=== PATIENT | male | born 1950 | race Caucasian/White ===

== ENCOUNTER → 2019-02-28 10:33 | Outpatient (CLI) | payer MEDICARE, OTHER, SELFPAY ==
--- NOTE | 2019-02-28 | DI.MRI.S_ITS ---
PROCEDURE: MR CERVICAL SPINE WO CON INDICATIONS: Paresthesias TECHNIQUE: Noncontrast sagittal T1 spin echo and T2 fast spin echo, sagittal STIR, foraminal oblique sagittal T2 fast spin echo, and axial gradient echo or T2 fast spin echo through the cervical spine. COMPARISON: [facility], MR, MR HEAD/BRAIN WO CON, 02/28/2019, 10:50. FINDINGS: Image quality: Excellent. Alignment and Curvature: There is grade 1 retrolisthesis of C4 on C5. Bone Marrow: Marrow demonstrates normal overall signal. Spinal Cord: Visualized spinal cord has normal size and signal. No cerebellar tonsillar herniation. Paraspinous Soft Tissues: No paravertebral masses. Prevertebral soft tissues are normal in thickness. C2-C3: Preserved disc height. Moderate disc desiccation. There is mild posterior disc bulge. The central canal is patent. No significant foraminal stenosis. No definitive nerve root impingement. C3-C4: Preserved disc height. Moderate disc desiccation. There is diffuse posterior disc bulge and disc osteophyte complex. The central canal is moderately narrowed. Mild bilateral foraminal stenosis. No definitive nerve root impingement. C4-C5: Mild loss of disc height. Moderate disc desiccation. There is diffuse posterior disc bulge and disc osteophyte complex. Moderate bilateral facet arthropathy. The central canal is severely narrowed. [id number] bilateral bilateral foraminal stenosis. Possible bilateral nerve root impingement. C5-C6: Preserved disc height. Moderate disc desiccation. There is diffuse posterior disc bulge and disc osteophyte complex. Moderate bilateral facet arthropathy. The central canal is moderately narrowed. Moderate bilateral bilateral foraminal stenosis. No definitive nerve root impingement. C6-C7: Moderate loss of disc height and disc desiccation. There is diffuse posterior disc bulge and disc osteophyte complex. Mild bilateral facet arthropathy. The central canal is moderately narrowed. Mild bilateral bilateral foraminal stenosis. No definitive nerve root impingement. C7-T1: Normal appearance. IMPRESSION: 1. Multilevel degenerative disc disease and facet arthropathy as described. 2. Severe central canal stenosis at C4-C5, and moderate central canal stenosis at C3-C4, C5-C6 and C6-C7. 3. Multilevel foraminal stenosis stenosis, moderate to severe at C4-C5 bilaterally, and to lesser degree at several other levels. Dictated by: Chelsea Gant M.D. on 02/28/2019 at 13:01 Approved by: Chelsea Gant M.D. on 02/28/2019 at 13:17
--- NOTE | 2019-02-28 | DI.MRI.S_ITS ---
PROCEDURE: MR HEAD/BRAIN WO CON INDICATIONS: Paresthesias TECHNIQUE: Noncontrast axial T1 spin echo, axial T2 fast spin echo, sagittal and axial FLAIR, coronal T2 fast spin echo, axial gradient echo, axial diffusion and ADC through the brain. COMPARISON: [facility], MR, MR CERVICAL SPINE WO CON, 02/28/2019, 11:13. FINDINGS: Image quality: Excellent. CSF Spaces: Basal cisterns are patent. No extra-axial fluid collections. Ventricles are normal in size and shape. Brain: No intracranial masses or hemorrhage. Calvillo/white matter interface is normal. Brainstem appears normal. Diffusion-weighted images demonstrate no acute ischemic insult. No chronic ischemic insults. Normal intravascular flow voids are present. Skull and face: Calvarium has normal marrow signal. Orbits appear normal. Sinuses: Sinuses and mastoids are clear and there is a normal anatomic variant ossification of the anterior process of the left mastoid air cell region. IMPRESSION: Excellent appearance of the brain parenchyma, no area of mass or encephalomalacia is seen. No suspicion for underlying multiple sclerosis, overall normal for age. Normal anatomic variant partial ossification of the inferior process of the left mastoid air cell region. Dictated by: Chirag Carver M.D. on 02/28/2019 at 11:42 Approved by: Chirag Carver M.D. on 02/28/2019 at 11:44
== END ==
PROVIDERS: PCP Internal Medicine; Visit Provider Psychiatry & Neurology Neurology
DX: R20.2 Paresthesia of skin (principal); M48.02 Spinal stenosis, cervical region; M48.12 Ankylosing hyperostosis [Forestier], cervical region
CPT/HCPCS: 70551; 72141

== ENCOUNTER → 2019-05-01 14:19 | Outpatient (CLI) | payer MEDICARE, OTHER, SELFPAY ==
[2019-05-01 14:49] LABS: Add Manual Diff / Slide Review NO; Basophils Absolute Auto 0 /uL (0-100); Basophils Percent Auto 0.6 % (0-2); Eosinophils Absolute Auto 200 /uL (0-450); Eosinophils Percent Auto 3.2 % (2-4); Hematocrit 46.7 % (41-53); Hemoglobin 15.5 g/dL (13.5-17.5); Lymphocytes Absolute Auto 2100 /uL (1100-4500); Lymphocytes Percent Auto 30.4 % (25-40); Mean Corpuscular HGB Conc 33.2 % (30-36); Mean Corpuscular Hemoglobin 29.7 PG (26-34); Mean Corpuscular Volume 89.5 fL (80-100); Monocytes Absolute Auto 500 /uL (0-900); Monocytes Percent Auto 7.7 % (3-14); Neutrophils Absolute Auto 4000 /uL (1500-7000); Neutrophils Percent Auto 58.1 % (50-75); Platelet Count 265 X10^3/uL (150-400); Red Blood Cell Count 5.23 X10^6/uL (4.5-5.9); Red Cell Distribution Width 13.2 % (11.6-14.8); White Blood Cell Count 6.9 X10^3/uL (4.5-11.0)
[2019-05-01 15:37] LABS: Blood Urea Nitrogen 19 mg/dL (9-20); Calcium 9.9 mg/dL (8.4-10.2); Carbon Dioxide 30 mmol/L (22-32); Chloride 99 mmol/L (98-107); Estimated Glomerular Filt Rate > 60.0 mL/min (>60); Glucose 97 mg/dL (80-110); HEMOLYSIS < 15 (0-50); Potassium 4.4 mmol/L (3.4-5.1); Sodium 141 mmol/L (137-145)
== END ==
PROVIDERS: PCP Internal Medicine; Visit Provider Orthopaedic Surgery Orthopaedic Surgery of the Spine
DX: Z01.812 Encounter for preprocedural laboratory examination (principal)
CPT/HCPCS: 36415; 80048; 85025; 93005

== ENCOUNTER 2019-05-29 08:38 | Inpatient (IN) | payer MEDICARE, OTHER, SELFPAY ==
[2019-05-23 13:47] VITALS: BMI 24.4
[2019-05-29] VITALS (20 sets, daily range): BP systolic 110–167; BP diastolic 68–104; PULSE 79–111; RESP 12–17; TEMP 36.1–37.3; O2SAT 94–100; BMI 22.9
--- NOTE | 2019-05-29 | DI.RAD.S_ITS ---
PROCEDURE: XR CERVICAL SPINE 2V OR 3V INDICATIONS: C4-5-6-7 ACDF TECHNIQUE: Fluoroscopic images were obtained during an operative procedure and submitted for interpretation following the completion of the procedure. COMPARISON: [facility], , MR CERVICAL SPINE WO CON, 02/28/2019, 11:13. FINDINGS: These fluoroscopic images were performed for intraoperative localization. On these images, anterior fixation hardware is seen the C4-C7. Disc spacers are seen at the fused region. Please correlate with intraoperative findings. IMPRESSION: Normal intraoperative examination. Dictated by: Flaquito Palmer M.D. on 05/29/2019 at 13:24 Approved by: Flaquito Palmer M.D. on 05/29/2019 at 13:25
[2019-05-29] MEDS: LACTATED RINGERS 1,000 ML 42 ML IV ×2 (10:24→12:27)
--- NOTE | 2019-05-29 10:44 | PM.PREOP ---
Pre-operative Note Interval Note History & Physical reviewed/Exam performed by Physician: Yes Changes to H&P: No
[2019-05-29] MEDS: CLINDAMYCIN 600 MG/50 ML PIGGYBACK 50 MG IV ×2 (11:20→18:30)
--- NOTE | 2019-05-29 12:08 | SUR.OPER ---
Supine on padded OR bed, head on gel donut, towel roll between shoulders, arms papoosed with gel pads, towel clips secure draw sheet, bilateral shoulders taped to foot of bed, legs uncrossed, safety belt at thigh, tape over blanket over lower legs.
--- NOTE | 2019-05-29 14:15 | PM.OP.1 ---
Operative Date/Time/Diagnoses Date of procedure: 05/29/19 Time of procedure: 12:01 Pre-op diagnosis: 1. C4-5, C5-6, C6-7 spinal stenosis 2. C4-5, C5-6, C6-7 spondylosis with radiculopathy Post-op diagnosis: same Procedure & Clinicians Procedure: 1. C4-5 C5-6 C6-7 anterior cervical diskectomy and fusion 2. C4-5 C5-6 C6-7 anterior interbody cage placement 3. C4-5 C5-6 C6-7 anterior instrumentation with plate and screw placement in C4-C5-C6 and C7 vertebrae 4. Utilization of microsurgical technique and operating microscope Same procedure as scheduled: Yes Indications: Patient has been having chronic neck pain and worsening cervical radiculopathy. Patient failed multiple conservative management with worsening pain weakness and numbness in her upper extremity. Patient has been having difficulty performing activity of daily living. After discussing risks benefits of treatment options, patient elected proceed with surgery. Surgeon: Olayinka Herndon Bundle Wrapper: Venita Somers'Brien Click Yes if Unassisted: No Anesthesia Type: General Operative Notes Closure Type: primary Specimen(s): none sent Prosthetic devices, grafts, tissues, transplants, or devices: GLobus Extend plate, PEEK cages Applied: catheter Estimated Blood Loss (mL): 20 Blood products transfused: none Procedure in detail: Patient was seen in the preoperative area. Risks and benefits of the surgery was discussed with the patient. Operative consent was obtained and placed in the chart. Patient was then taken to the operative room. Prophylactic antibiotic was given less than 0.5 hr prior to skin incision. General anesthesia was administered. Patient was placed into a supine position on her radiolucent table. Bilateral shoulders were taped down to allow proper C-arm imaging. Anterior cervical area was prepped and draped in a sterile fashion. Time-out was performed at this time. Using lateral C-arm imaging, the level between C4 and C7 was identified and marked on patient's neck. A oblique incision from midline towards medial border of sternocleidomastoid muscle was made. The platysma muscle was incised in line with skin incision. Metzenbaum scissor was used to develop the plane between the medial border of sternocleidomastoid d and the strap muscles medially. The carotid sheath and its contents were identified and protected behind the hand-held retractor during the entire case. The plane between the carotid sheath and strap muscles was developed with Metzenbaum scissors. Dissection was made down to the level of the anterior cervical fascia. Longus colli muscle was incised on the anterior aspect of vertebral bodies bilaterally from C4-C7. Spinal needle was placed into the C4-5 disc space and confirmed with lateral C-arm imaging. Using microsurgical technique and operative microscope, anterior cervical diskectomy was performed at C4-5 C5-6 and C6-7 level. This was done by removing the disc material, removing the anterior and posterior osteophytes posterior longitudinal ligaments along with performing bilateral foraminotomies at all 3 levels. Patient was found to have severe central and foraminal stenosis at all 3 levels. Patient's stenosis was fully decompressed after decompression was completed. After the diskectomy was completed, 3 anterior interbody cages were obtained. The cages were packed with globus via cell bone grafting material. One cage each along with the bone grafting material was then packed into the interbody spaces from C4-C7 with one cage into each interbody level. After the cages were placed, the anterior cervical plate was stabilized to the C4-C7 vertebrae using 2 screws at each each level. Total 8 screws were placed. After confirming placement of the hardware with AP and lateral C-arm imaging, the screws were locked into the plate using the locking mechanism and torque limiting screwdriver. After the hardware was placed and confirmed with AP and lateral C-arm imaging, the wound was irrigated with sterile normal saline. The platysma muscle and the subcutaneous tissue was closed with 2-0 Vicryl. The skin was closed with 4-0 Monocryl and Steri-Strips. Patient tolerated the procedure well. Patient was transferred recovery room in stable condition. There were no complications. Complications: none Post-operative Condition: stable Disposition: PACU Plan for aftercare: Admit to inpatient hospital
[2019-05-29] MEDS: HYDROMORPHONE 2 MG INJ IV ×8 (14:45→15:26)
--- NOTE | 2019-05-29 15:40 | SUR.PHASEI ---
Pt. not getting relief to Left upper arm after 2mg Dilaudid. Posterior neck pain has improved with IV Rx. Notifying Dr. Herndon regarding Left upper arm pain that the pt. states he did not have before todays procedure.
--- NOTE | 2019-05-29 15:51 | SUR.PHASEI ---
Anesthesia came to bedside to assess pt's left upper arm, anesthesia recommends administering more pain med IV to help with current pain. pt. states it doesn't hurt when it is still, hurts when I move it.
[2019-05-29] MEDS: HYDROMORPHONE 2 MG INJ 0.5 MG IV (16:05)
[2019-05-29] MEDS: SODIUM CHLORIDE 0.9% 1,000 ML 100 ML IV (17:54)
[2019-05-29] MEDS: GABAPENTIN 300 MG CAPSULE 900 MG PO ×2 (17:54→21:50)
[2019-05-29] MEDS: CARBIDOPA-LEVODOPA 25/100 TABLET 1 EACH PO ×2 (18:30→21:52)
[2019-05-29] MEDS: OXYCODONE IR 5 MG TABLET 10 MG PO ×2 (18:36→21:48)
--- NOTE | 2019-05-29 18:44 | PC.NURSE ---
[place] shift note: Received patient from PACU S/P ACDF scheduled by Dr. HENRY. Soft collar in placed with ice pack. 3+ strenght to BUE. Patient c/o sharp pain to left mid upper arm, no noted bruising or skin breakdown to area, no pain at rest, only with movement. Patient able to move the the LUE, CMS intact, no deformity noted. Dr. HENRY at bedside, aware of left upper arm pain. Discussed importance of log rolling and no heavy lifting. Oriented to room, environment, and plan of care. Call light within reach.
[2019-05-29] MEDS: TRIMETH/SULFA 160/800 (DS) TABLET 1 TAB PO (21:52)
[2019-05-29] MEDS: HYDROMORPHONE 1 MG INJ 0.2 MG IV (23:48)
[2019-05-29] MEDS: ACETAMINOPHEN 325 MG TABLET 650 MG PO (23:49)
[2019-05-30] MEDS: OXYCODONE IR 5 MG TABLET 10 MG PO ×6 (01:21→21:33)
[2019-05-30] MEDS: hydrOXYzine pamoate 25 MG CAPSULE PO ×2 (01:21→21:43)
[2019-05-30] MEDS: CLINDAMYCIN 600 MG/50 ML PIGGYBACK 50 MG IV (03:54)
[2019-05-30] MEDS: SODIUM CHLORIDE 0.9% 1,000 ML 100 ML IV (04:01)
[2019-05-30 05:03] VITALS: BP 117/59; PULSE 76; RESP 18; TEMP 36.8; O2SAT 98
--- NOTE | 2019-05-30 08:02 | PM.PNPO.1 ---
Subjective Subjective Date Patient Seen: 05/30/19 Time Patient Seen: 08:02 Interval history: Patient's pain is moderate to severe. No fever chills. No nausea vomiting. No difficulty swallowing. Exam Vital Signs (past 8 hours): - 05/30/19 05:03 Temperature 98.3 F Pulse Rate 76 Respiratory Rate 18 Blood Pressure 117/59 L Pulse Oximetry 98 Oxygen Delivery Method Nasal Cannula Oxygen Flow Rate 0 Narrative Exam Narrative: 68-year-old male resting comfortably in bed in no apparent distress. Anterior cervical dressing is clean, dry and intact. Good strength bilateral upper extremity. Sensation grossly intact to light touch bilateral upper extremities. Assessment & Plan Post-op Postoperative Procedures: Procedures Operation Date: 05/29/19 11:15 Actual Procedures Side Surgeon p C4-5,C5-6,C6-7 ACDF w/ anterior instrumentation Olayinka Herndon MD Postop day 1. Patient progressing as expected. Soft collar for comfort. Limit bending, twisting, lifting. Mobilize with physical therapy. Possible discharge home later today or tomorrow.
[2019-05-30 08:06] VITALS: BP 119/73; PULSE 73; RESP 16; TEMP 37.1; O2SAT 99
[2019-05-30] MEDS: TRIMETH/SULFA 160/800 (DS) TABLET 1 TAB PO ×2 (08:40→21:33)
[2019-05-30] MEDS: CARBIDOPA-LEVODOPA 25/100 TABLET 1 EACH PO ×3 (08:40→21:33)
[2019-05-30] MEDS: GABAPENTIN 300 MG CAPSULE 900 MG PO ×3 (08:40→21:32)
--- NOTE | 2019-05-30 10:04 | PC.NURSE ---
Addendum entered by Cinthia Varela R.N. 05/30/19 13:08: - after lunch, albright balloon deflated and dc'd w/o difficulty, hat in br and urinal at bedside. Original Note: AM NOTE - alert, speech is slightly slowed w/hx parkinsons, during bedside shift report had cervical collar off, telfa dsg cdi, reported post op pain l arm at shoulder/bicep insertion has improved since pain medication earlier and is able to move his l arm independently I couldn't even have the nurse touch in last night, discussed medications and after breakfast, given 10mg po oxycodone for discomfort 3 on scale 0/10 for phys therapy, will hold vistaril for now and pt will advise if needed after PT, up w/fww, his soft cervical collar in place, using fww, ambul bed to chair, per phys therapy some initial wobbliness and hand tremor, denies dizziness, seated chair and positioned comfort, no tremors observed, vs stable, william po and ivf saline locked.
--- NOTE | 2019-05-30 12:00 | CM.IDA ---
Initial DCP Assessment Note: Pt is a 68 yo resident of [place]. POD#1 from spinal/cervical surgery by Dr Herndon. PCP: Dr Resendiz Payer: Medicare/[employer] Met w/pt to introduce SW role. 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 Pt states he had been told w/in the last year that he for sure had Parkinsons, he feels he and his spouse manage well at home, adult children live out of town. Pt expects to return home w/spouse upon DC. PT has seen pt this AM, pt states he was quite wobbly w/therapy but expects he could go home, possibly tomorrow. 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 No Prior Living Arrangements House Household Members spouse Independent with ADL's Yes Is patient alert and oriented? Yes Needs Assistance With Meal Prep,Home Chores / Shopping Patient/Family Preference OP PT Therapy Barriers to Discharge No Comment Pending progress w/therapy team, spouse available to assist Discharge Plan Home Transportation Arrangement Spouse Referrals Initiated None needed Review Status In Process
[2019-05-30 12:05] VITALS: BP 108/73; PULSE 86; RESP 16; TEMP 37.1; O2SAT 97
--- NOTE | 2019-05-30 12:15 | PT.IIE ---
Current Diagnoses Spondylolisthesis, cervical region (05/29/19) Spinal stenosis, cervical region (05/29/19) Surgery Performed Operation Date: 05/29/19 11:15 Actual Procedures p C4-5,C5-6,C6-7 ACDF w/ anterior instrumentation - Olayinka Herndon MD Surgical History (Last Updated 05/23/19 @ 14:12 by Geraldine Leonardo RN) H/O vasectomy (Acute) Hx of appendectomy (Acute) Hx of cholecystectomy (Acute) Hx of hernia repair (Acute) Hx of tonsillectomy (Acute) Medical History (Last Updated 05/23/19 @ 14:12 by Geraldine Leonardo RN) Carpal tunnel syndrome of right wrist (Acute) Cervical spinal stenosis (Acute) Hair follicle infection (Acute 05/23/19) Numbness (Acute) Parkinsonism (Acute) Polyneuropathy (Acute) Unilateral congenital absence of kidney (Acute) Physical Therapy Inpatient Evaluation/Re-Eval M1 PT/OT-IP Prior Functional Status Start: 05/30/19 08:25 Freq: NEEDED Status: Active Protocol: Document 05/30/19 09:18 PAULA (Rec: 05/30/19 11:57 PAULA [email or web address]) Medical Review Prior Functional Status Medical History Reviewed Yes Diet/Fluid Consistency Regular Communication No noted cognitive deficits. Pt able to make needs known. Mobility and Gait Pt reports I with mobility and gait prior to surgery without AD. Activities of Daily Living and IADL's Pt report I with ADLs and IADLs. Prior Functional Level (Other details) Pt reports I PLOF and was able to drive prior to surgery. Pt does have hx of Parkinson's but states that he does not need to use an AD at home. Social History Household Members spouse Living Arrangements House Number of Floors (Floors) Two Floors Number of Stairs To Enter/Railing? 5 DINO (front entrance has railing on R and no landing, back entrance has railing on L and a landing after 3 steps) Home Environment Standard Height Toilet,Walk in Shower Home Equipment Hand Held Shower,Grab Bars In Shower Employment Status Retired Additional Social History Comment Pt lives in 2-story home in [place] with . Pt states that his will be able to help him at home after surgery. Pt has two entrances to basement level of home with 5 DINO either entrance. Pt notes that he could live on bottom floor for short-term but the main living area is upstairs (full flight of stairs with L railing). Pt has no ADs at home and minimal home assistive equipment. M2 PT-IP Current Condition Start: 05/30/19 08:25 Freq: NEEDED Status: Active Protocol: Document 05/30/19 09:18 JG (Rec: 05/30/19 11:57 JG [email or web address]) Physical Therapy Current Condition Current Condition Evaluation Date 05/30/19 Treatment Diagnosis ACDF C4-C7, limited activity tolerance,difficulty walking, impaired mobility Onset Date 05/29/19 Precautions Cervical Spine Precautions Soft Collar for Comfort,No Heavy Lifting,Log Roll Weight Bearing Status Weight Bearing Status Full Weight Bearing M3 PT-IP Subjective Start: 05/30/19 08:25 Freq: NEEDED Status: Active Protocol: Document 05/30/19 09:18 JG (Rec: 05/30/19 11:57 JG [email or web address]) Subjective Physical Therapy Visit Type Type Initial Evaluation Visit Start Time 09:18 Visit Stop Time 09:50 Total Visit Minutes 32 Notes Tx led by ELA Weinstein, supervised by PT Raul Number of DELICATESSEN DEPARTMENT MANAGER Visits 0 Physical Therapy Visit Comments Patient Comments I am not in too much pain. I am not sure how much I can move my neck safely. Patient Goals Return home Therapy Pain Assessment Pain When Pain Assessed At Rest Pain Present Pain Present Pain Reported Location Left Arm Intensity 3 Scale Used Numeric (1 - 10) Description Acute Pain Management Techniques Distraction,Timing of Activity with Medications M4 PT-IP Mobility and Gait Start: 05/30/19 08:25 Freq: NEEDED Status: Active Protocol: Document 05/30/19 09:18 JG (Rec: 05/30/19 11:57 JG [email or web address]) PT-Bed Mobility Assessment Rolling Type of Rolling Log Rolling,Roll to Right Level of Assist Minimal Assistance Supine to Sit Supine to Sit Minimal Assistance,Bedrails Scooting Scooting to Edge of Bed Minimal Assistance PT-Transfer Assessment Sit to and From Stand Sit to and from Stand Minimal Assistance,1 Person Assistance,Use of Upper Extremities Equipment Transfer Assistive Device Gait Belt,Front Wheeled Walker Orthotic/Prosthetic Devices or Brace: Yes Transfers Transfer Destination Chair Transfer Technique Stand Step Pivot Transfer Ability Level of Assist Minimal Assistance,1 Person Assistance,Use of Upper Extremities Comments Mobility Comments Pt in bed with HOB elevated and cervical soft collar off upon assessment. Resting vitals 123/60. Cervical collar placed and secured by PT. Pt reported feeling groggy from medications and demonstrates tremor throughout mobility likely related to PD. After education on log rolling, pt able to complete bed mobility with min A d/t tremor. Pt moved very slowly with bed mobility and used bed rail on R side for side pushup. Pt required min A for balance with sit to stand. Vitals stable with BP 131/74. Pt ambulated to hallway and back to mirror for cervical collar training with CGA for balance. Pt able to remove collar I but requires assistance to fasten collar securely. Pt then ambulated to the chair and required min A to control descent with stand to sit. Pt reported feeling slightly dizzy at end of ambulation but demonstrated stable vitals with BP 132/79. Pt reported relief of dizziness after resting. Pt left in chair with call light and needs within reach. Gait Assessment Gait Gait Assistance Required: Minimum Assistance,1 Person Assist Distance (Feet) 30 Able to Maintain Weight Bearing Status Yes During Gait Assistive Devices Assistive Device Gait Belt,Front Wheeled Walker Orthotic/Prosthetic Devices or Brace: Yes Gait Deviations General Gait Pattern Decreased Stride Length, Decreased Feet Clearance, Flexed Trunk,Lateral Trunk Lean,Step-to Gait Factors Limiting Gait Function Factors Limiting Gait Function Decreased Activity Tolerance, Decreased Strength,Limited Range of Motion,Pain,Poor Balance,Poor Safety Awareness Comments Gait Comments Pt ambulated ~40 ft to hallway and back to chair with FWW and min A. Pt had difficulty initiating movement and moved slowly initially. Pt also required cues and guidance for walker management, especially when turning. Pt demonstrated shuffling gait pattern with limited feet clearance and small steps likely related to PD. Pt also demonstrates excessive L trunk lean, which pt noticed and said does not typically happen. Pt was fatigued at end of ambulation with report of mild dizziness but stable vitals. Stair Climbing Assessment Comments Stair Climbing Comments not assessed PT-Balance Assessment Sitting Balance and Reactions Static Sitting Balance Ability Good Dynamic Sitting Balance Ability Fair Standing Balance and Reactions Static Standing Balance Ability Good Dynamic Standing Balance Ability Fair Device Used FWW M5 PT-IP Objective Assessments Start: 05/30/19 08:25 Freq: NEEDED Status: Active Protocol: Document 05/30/19 09:18 JG (Rec: 05/30/19 11:57 JG [email or web address]) Orientation Orientation/Cognition Level of Alertness Alert Orientation Name,Age,Birthday,Month,Date, Year,Day of Week,Place, Situation Language Function Ability No Deficits Noted Safety Awareness Understands Safety Issues Memory Description No Deficits Noted Comments No noted cognitive or communication deficits. Pt does report feeling groggy from medications. Gross Range of Motion Upper Extremity ROM Assessment Within Functional Limits Lower Extremity ROM Assessment Within Functional Limits Strength Upper Extremity Strength Assessment Bilaterally Impaired Shoulder 4/5 Elbow 4/5 Wrist 4/5 Hand 5/5 Lower Extremity Strength Assessment Within Functional Limits Coordination Assessment Gross Coordination Gross Coordination Impaired Assessment Finger to Nose Test Minimal Impairment Pronation/Supination Test Minimal Impairment Foot Tapping Test Normal Performance Sensation Assessment Sensation Gross Sensation WNL Muscle Tone Muscle Tone WNL Yes M6 PT-IP Treatment Start: 05/30/19 08:25 Freq: NEEDED Status: Active Protocol: Document 05/30/19 09:18 J (Rec: 05/30/19 11:57 [email or web address]) Physical Therapy Treatment Education Education Provided Precautions,Post-Op Packet, Safety Brace Education Donning,Rudd,Patient Other Treatments Other Treatment Performed Educated pt on log rolling for bed mobility. Instructed pt on donning/doffing soft collar . Pt able to doff independently but requires assistance from PT to don soft collar. Disc current need for FWW d/t impaired balance and stability. Provided pt with options to attain a FWW and pt noted that he would like a DME walker prior to d/c. M7 PT-IP Assessment and Plan Start: 05/30/19 08:25 Freq: NEEDED Status: Active Protocol: Document 05/30/19 09:18 J (Rec: 05/30/19 11:57 [email or web address]) PT Summary Assessment and Plan Potential Rehabilitation Potential Good Status of Condition at Evaluation Stable Summary Impairments Pain,ROM,Strength,Balance, Coordination,Bed Mobility, Transfers,Gait,Activity Tolerance Assessment Summary Pt is 68 yo male 1 day s/p ACDF. Pt has hx of PD but reports I PLOF without AD. Pt requires min A for bed mobility and no more than min A with transfers and ambulation with FWW. Pt moved very slowly throughout session and had slow initiation of movement. Pt appears anxious throughout treatment and reports dizziness at end of ambulation with stable vitals. Pt unable to manage soft collar I. PT currently recommends d/c to SNF or home with 24/7 assist and home health. Will cont to reassess after caregiver training. Goals Bed Mobility Goal Independent Transfer Goal Independent,Front Wheeled Walker Gait Goal Independent,Front Wheel Walker Gait Distance 250 Other Goals Ascend/descend 5 steps with single railing support CGA Days to Meet Goals 5 Frequency of Treatment Frequency Of Treatment Twice a Day Treatment Plan Physical Therapy Treatment Plan Bed Mobility Training,Transfer Training,Gait Training, Therapeutic Exercise,Balance Retraining,Post Op Education, Discharge Planning,Hot or Cold Pack,Neuromuscular Re-ed Other Recommendations and Next Treatment Caregiver training Focus Stairs Recommendations To Nursing Amount of Assist Needed 1 Person Assist Discharge Recommendations PT Discharge Recommendations Home with 24/7 Assist,Home Health,SNF Rehab Equipment Needed for Home Before FWW Discharge
--- NOTE | 2019-05-30 13:26 | ST.IPSCREEN ---
Swallow screen completed per protocol. Patient has hx of Parkinson's without history of dysphagia. Patient passed waverly swallow screen without signs of aspiration. Verbal and written education provided regarding safe swallow precautions and advancing diet as tolerated. Also discussed recommendation for outpatient [facility] program for Parkinson's patients.
[2019-05-30 15:30] VITALS: BP 124/75; PULSE 80; RESP 18; TEMP 36.9; O2SAT 96
--- NOTE | 2019-05-30 15:30 | OT.IP.EVAL ---
Current Diagnoses Spondylolisthesis, cervical region (05/29/19) Spinal stenosis, cervical region (05/29/19) Surgery Performed Operation Date: 05/29/19 11:15 Actual Procedures p C4-5,C5-6,C6-7 ACDF w/ anterior instrumentation - Olayinka Herndon MD Past Medical History (Last Updated 05/23/19 @ 14:12 by Geraldine Leonardo, RN) Carpal tunnel syndrome of right wrist (Acute) Cervical spinal stenosis (Acute) Hair follicle infection (Acute 05/23/19) Numbness (Acute) Parkinsonism (Acute) Polyneuropathy (Acute) Unilateral congenital absence of kidney (Acute) Surgical History (Last Updated 05/23/19 @ 14:12 by Geraldine Leonardo RN) H/O vasectomy (Acute) Hx of appendectomy (Acute) Hx of cholecystectomy (Acute) Hx of hernia repair (Acute) Hx of tonsillectomy (Acute) Occupational Therapy Inpatient Evaluation/Re-Eval M1 PT/OT-IP Prior Functional Status Start: 05/30/19 08:25 Freq: NEEDED Status: Active Protocol: Document 05/30/19 15:30 PJM (Rec: 05/30/19 17:31 PJM [id number]) Medical Review Prior Functional Status Medical History Reviewed Yes Diet/Fluid Consistency Regular Communication No noted cognitive deficits. Pt able to make needs known. Mobility and Gait Pt reports I with mobility and gait prior to surgery without AD. Activities of Daily Living and IADL's Pt report I with ADLs and IADLs including driving. Prior Functional Level (Other details) Pt does have hx of Parkinson's but states that he does not need to use an AD at home. Social History Household Members spouse Living Arrangements House Number of Floors (Floors) Two Floors Number of Stairs To Enter/Railing? 5 stairs with one rail to enter main level Home Environment Standard Height Toilet,Walk in Shower Home Equipment Front Wheel Walker,Hand Held Shower,Long Handled Sponge, Grab Bars Near Toilet,Grab Bars In Shower Employment Status Retired Additional Social History Comment can provide 24 hr assist at d/c, she will obtain shower seat, raised toilet seat and laser beam color scanner operator for pt M2 OT-IP Current Condition Start: 05/30/19 17:18 Freq: Status: Active Protocol: Document 05/30/19 15:30 PJM (Rec: 05/30/19 17:31 PJ [id number]) Occupational Therapy Current Condition Current Condition Evaluation Date 05/30/19 Treatment Diagnosis decreased self care, functional mobility s/p C4-7 ACDF, Parkinsons Diagnosis Onset Date 05/29/19 Post Operative Precautions Cervical Spine Precautions Soft Collar for Comfort,No Heavy Lifting,Log Roll Other Precautions fall risk due to Parkinsons M3 OT- IP Subjective and Pain Start: 05/30/19 17:18 Freq: Status: Active Protocol: Document 05/30/19 15:30 PJM (Rec: 05/30/19 17:31 PJ [id number]) OT- Subjective Occupational Therapy Visit Type Type Initial Evaluation Visit Start Time 14:52 Visit Stop Time 15:30 Total Visit Minutes 38 Notes here for education this session Occupational Therapy Visit Comments Patient Comments I don't want to take any more narcotics. Patient/Caregiver Goals to go home tomorrow OT Pain Assessment Pain When Pain Assessed After Treatment Pain Present Pain Present Pain Reported Location Neck Intensity 3 Scale Used Numeric (1 - 10) Description Aching,Acute Pain Behaviors Guarding Management Techniques Distraction,Re-positioning, Timing of Activity with Medications M4 OT- IP ADL's Start: 05/30/19 17:18 Freq: Status: Active Protocol: Document 05/30/19 15:30 PJM (Rec: 05/30/19 17:31 PJ [id number]) OT [id number]-[id number]-[id number] General Evaluation Self-Feeding Ability Independent OT ADL-Grooming General Evaluation Areas Needing Assistance Face Washing Comments OT Grooming Comments SBA after set up in bed OT ADL-Oral Care Comments Oral Care Comments did not occur this session OT ADL-Dressing Comments OT Dressing Comments Began education re: adapted techniques to prevent C spine strain and equipment options. to obtain laser beam color scanner operator for pt. They decline sock aid; to assist PRN. OT ADL-Toileting Comments OT Toileting Comments did not occur this session; pt declines need OT ADL-Bathing Comments OT Bathing Comments to be assessed in AM M5 OT- IP IADL's Start: 05/30/19 17:18 Freq: Status: Active Protocol: Document 05/30/19 15:30 PJM (Rec: 05/30/19 17:31 PJ [id number]) OT-Instrumental Activities of Daily Living Deficits IADL Deficits Identified Deficits Home Safety Awareness Awareness of Need for Assistance at Home Good Awareness Ability to Problem Solve Emergency Able to Problem Solve Situations Medication Management Medication Management No Deficits Identified Money Management Money Management No Deficits Identified Meal Preparation Meal Preparation Caregiver Provides Assist Meal Preparation Comments pt normally does his own cooking; to assist until pt able Mva Operator Mva Operator Caregiver Provides Assist Mva Operator Comments to assist until pt able Driving Driving Caregiver Provides Assist Driving Comments to assist until pt able M6 OT- IP Functional Cognition Start: 05/30/19 17:18 Freq: Status: Active Protocol: Document 05/30/19 15:30 PJM (Rec: 05/30/19 17:31 [email or web address]) Cognitive Factors Limiting Selfcare Function Cognitive Ability Level of Alertness Drowsy Patient Orientation Name,Age,Birthday,Month,Date, Year,Day of Week,Place, Situation Attention Span Ability Capable of Focused Attention Ability to Follow Commands Able to Follow One Step Commands Memory Description No Deficits Noted Problem Solving Ability Needs Assist to Identify Solutions Cognitive Comments Cognitive Assessment Comments pt recalls C spine precautions OT- Vision and Hearing OT- Hearing Assessment OT- Hearing Assessment WFL OT- Vision Assessment Visual Acuity WFL M7 OT- IP Mobility and Balance Start: 05/30/19 17:18 Freq: Status: Active Protocol: Document 05/30/19 15:30 PJM (Rec: 05/30/19 17:31 [email or web address] [id number]) OT-Transfer Assessment Comments Mobility Comments pt just back to bed after P.T. , see P.T. notes OT- Gait Assessment Comments Gait Ability Comments See P.T. notes OT- Balance Assessment Comments Other Balance Tests/Deviations/Treatment See P.T. notes : M8 OT- IP Objective Assessments Start: 05/30/19 17:18 Freq: Status: Active Protocol: Document 05/30/19 15:30 PJM (Rec: 05/30/19 17:31 [email or web address]) OT Gross Range of Motion Upper Extremity Range of Motion Assessment Within Functional Limits OT Strength Upper Extremity Strength Assessment Within Functional Limits Hand Technology Applications Engineer Strength Hand Dominance Right Comments Strength Comments pt reports RUE fatigued easily prior to surgery, especially when driving OT- Coordination Assessment Comments Coordination Comments BUE WFL for self care despite Parkinsons OT-Muscle Tone Assessment Muscle Tone WNL Yes OT Sensation Assessment Comments Summary Comments Pt denies deficits Edema Edema Absent M9 OT- IP Assessment and Plan Start: 05/30/19 17:18 Freq: Status: Active Protocol: Document 05/30/19 15:30 PJJo (Rec: 05/30/19 17:31 PJM [id number]) OT Summary Assessment and Plan Potential Rehabilitation Potential Good Analytic Complexity at Evaluation Low Summary OT Impairments Pain,Functional Mobility, Grooming,Dressing,Toileting, Bathing,Toilet Transfers, Shower Transfers Assessment Summary Low complexity OT assessment completed on this 68 yr old male admitted for elective C4- 7 ACDF with co morbidity of mild Parkinson's. Pt currently has mild performance deficits in functional mobility, transfers, lower body dressing , bathing and toileting. Pt will benefit from 1-2 additional OT visits to address the goals below. Pt plans to d/c home with 24 hr assist from PRN. Goals Grooming Goal Independent Dressing Goal Minimal Assistance Toileting Goal Independent Bathing Goal Minimal Assistance Toilet Transfer Goal Independent,Raised Toilet Seat Shower Transfer Goal Standby Assistance Patient/Caregiver Education Goal Demonstrate Post-Op Precautions,Demonstrate Energy Conservation and Pacing, Caregiver Independent Assisting Patient OT-Other Goals Pt prefers to assist with socks PRN. Days to Meet Goals 1 Frequency of Treatment Frequency Of Treatment Once a Day Treatment Plan OT Treatment Plan ADL Training,Functional Mobility,Patient/Family Education,Discharge Planning Discharge Recommendations OT Discharge Recommendations Home with Assistance Home Equipment Needs to obtain shower seat, raised toilet seat, laser beam color scanner operator
--- NOTE | 2019-05-30 16:52 | PT.IPTN ---
Current Diagnoses Spondylolisthesis, cervical region (05/29/19) Spinal stenosis, cervical region (05/29/19) Surgery Performed Operation Date: 05/29/19 11:15 Actual Procedures p C4-5,C5-6,C6-7 ACDF w/ anterior instrumentation - Olayinka Herndon MD Physical Therapy Treatment Note M2 PT-IP Current Condition Start: 05/30/19 08:25 Freq: NEEDED Status: Active Protocol: Document 05/30/19 09:18 JG (Rec: 05/30/19 11:57 JG [id number]) Physical Therapy Current Condition Current Condition Evaluation Date 05/30/19 Treatment Diagnosis ACDF C4-C7, limited activity tolerance,difficulty walking, impaired mobility Onset Date 05/29/19 Precautions Cervical Spine Precautions Soft Collar for Comfort,No Heavy Lifting,Log Roll Weight Bearing Status Weight Bearing Status Full Weight Bearing M3 PT-IP Subjective Start: 05/30/19 08:25 Freq: NEEDED Status: Active Protocol: Document 05/30/19 14:36 DEMETRIUS (Rec: 05/30/19 16:52 DEMETRIUS [id number]) Subjective Physical Therapy Visit Type Type Treatment Note Visit Start Time 14:36 Visit Stop Time 15:01 Total Visit Minutes 25 Notes in room with pt Physical Therapy Visit Comments Patient Comments Pt stattes he has been up to the toilet x2 since the am treatment session and just recently returned to bed. He is willing to get up again to use the toilet Therapy Pain Assessment Pain When Pain Assessed At Rest Pain Present Pain Present Pain Reported M4 PT-IP Mobility and Gait Start: 05/30/19 08:25 Freq: NEEDED Status: Active Protocol: Document 05/30/19 14:36 DEMETRIUS (Rec: 05/30/19 16:52 DEMETRIUS [id number]) PT-Bed Mobility Assessment Rolling Type of Rolling Log Rolling,Roll to Right Level of Assist Minimal Assistance Supine to Sit Supine to Sit Minimal Assistance,Bedrails Scooting Scooting to Edge of Bed Contact Guard Assistance PT-Transfer Assessment Sit to and From Stand Sit to and from Stand Contact Guard Assistance,Use of Upper Extremities Equipment Transfer Assistive Device Gait Belt,Front Wheeled Walker Orthotic/Prosthetic Devices or Brace: Yes Transfers Transfer Destination Bed,Toilet Transfer Ability Level of Assist Minimal Assistance,1 Person Assistance,Use of Upper Extremities Comments Mobility Comments Pt resting in bed w/o cervical collar. Pt still groggy but will stop taking medications after his last dose tonight so that he can be more alert. Still has slight tremor. Pt moves slowly and carefully getting in and out of bed being careful to adhere to precautions. Pt needed less assist this afternoon with bed mobility being able to get up and back into bed with Song- CGA and moderate cueing. Gait Assessment Gait Gait Assistance Required: Contact Guard Assist,1 Person Assist Distance (Feet) 30 Assistive Devices Assistive Device Gait Belt,Front Wheeled Walker Orthotic/Prosthetic Devices or Brace: Yes Gait Deviations General Gait Pattern Decreased Stride Length, Decreased Feet Clearance, Flexed Trunk,Lateral Trunk Lean,Step-to Gait Factors Limiting Gait Function Factors Limiting Gait Function Decreased Activity Tolerance, Decreased Strength,Limited Range of Motion,Pain,Poor Balance,Poor Safety Awareness Comments Gait Comments Pt ambulated from r side bed to toilet and back with cueing for posture which he was able to correct easily. Performed toileting by himself using handrails in bathroom. Educated pt in importance of posture during ambulation when using FWW and he showed understanding. His was in the room and was included in the conversation about posture and safe ambulation with FWW. Stair Climbing Assessment Comments Stair Climbing Comments not assessed M5 PT-IP Objective Assessments Start: 05/30/19 08:25 Freq: NEEDED Status: Active Protocol: Document 05/30/19 09:18 JG (Rec: 05/30/19 11:57 J [id number]) Orientation Orientation/Cognition Level of Alertness Alert Orientation Name,Age,Birthday,Month,Date, Year,Day of Week,Place, Situation Language Function Ability No Deficits Noted Safety Awareness Understands Safety Issues Memory Description No Deficits Noted Comments No noted cognitive or communication deficits. Pt does report feeling groggy from medications. Gross Range of Motion Upper Extremity ROM Assessment Within Functional Limits Lower Extremity ROM Assessment Within Functional Limits Strength Upper Extremity Strength Assessment Bilaterally Impaired Shoulder 4/5 Elbow 4/5 Wrist 4/5 Hand 5/5 Lower Extremity Strength Assessment Within Functional Limits Coordination Assessment Gross Coordination Gross Coordination Impaired Assessment Finger to Nose Test Minimal Impairment Pronation/Supination Test Minimal Impairment Foot Tapping Test Normal Performance Sensation Assessment Sensation Gross Sensation WNL Muscle Tone Muscle Tone WNL Yes M6 PT-IP Treatment Start: 05/30/19 08:25 Freq: NEEDED Status: Active Protocol: Document 05/30/19 09:18 JG (Rec: 05/30/19 11:57 J [id number]) Physical Therapy Treatment Education Education Provided Precautions,Post-Op Packet, Safety Brace Education [place],Patient Other Treatments Other Treatment Performed Educated pt on log rolling for bed mobility. Instructed pt on donning/doffing soft collar . Pt able to doff independently but requires assistance from PT to don soft collar. Disc current need for FWW d/t impaired balance and stability. Provided pt with options to attain a FWW and pt noted that he would like a DME walker prior to d/c. M7 PT-IP Assessment and Plan Start: 05/30/19 08:25 Freq: NEEDED Status: Active Protocol: Document 05/30/19 14:36 LJ (Rec: 05/30/19 16:52 LJ [id number]) PT Summary Assessment and Plan Potential Rehabilitation Potential Good Status of Condition at Evaluation Stable Summary Impairments Pain,ROM,Strength,Balance, Coordination,Bed Mobility, Transfers,Gait,Activity Tolerance Assessment Summary Pt moving better with improved posture and understanding of importance of keeping upright for proper cervical positioning. He is at Song to SBA for mobility and gait with most assist being cueing. Pt will need to do stair training prior to DC Goals Bed Mobility Goal Independent Transfer Goal Independent,Front Wheeled Walker Gait Goal Independent,Front Wheel Walker Gait Distance 250 Other Goals Ascend/descend 5 steps with single railing support CGA Days to Meet Goals 5 Frequency of Treatment Frequency Of Treatment Twice a Day Treatment Plan Physical Therapy Treatment Plan Bed Mobility Training,Transfer Training,Gait Training, Therapeutic Exercise,Balance Retraining,Post Op Education, Discharge Planning,Hot or Cold Pack,Neuromuscular Re-ed Other Recommendations and Next Treatment Caregiver training Focus Stairs Recommendations To Nursing Amount of Assist Needed 1 Person Assist Discharge Recommendations PT Discharge Recommendations Home with 07/02 Assist,Home Health Equipment Needed for Home Before FWW Discharge
[2019-05-30 20:39] VITALS: BP 147/82; PULSE 85; RESP 18; TEMP 37.2
--- NOTE | 2019-05-30 21:17 | PC.NURSE ---
IV site pt complained of pain to IV site and requesting removal. no erythema or edema noted. policy regarding IV site explained to pt and IV site DC'd. pt refusing restart to different location.
[2019-05-30] MEDS: ACETAMINOPHEN 325 MG TABLET 650 MG PO (21:34)
--- NOTE | 2019-05-30 22:28 | PC.NURSE ---
Evening Shift Summary Patient reported 5 out of 10 pain on left arm. Under the supervision of Lavern (AVEL), I administered 10 mg po of oxycodone, 650 mg of acetaminophen, and 25 mg of hydroxyzine. Patient reported no discomfort on left anterior lateral incision site on neck. Patient hasn't had a bowel movement since 05/27/19. Lavern (RN) encouraged patient to drink prune juice. Will continue to monitor patient. Call light is within reach, bed is in the lowest position and locked.
[2019-05-31 00:10] VITALS: BP 99/64; PULSE 75; RESP 14; TEMP 37.1; O2SAT 93
[2019-05-31 04:20] VITALS: BP 104/67; PULSE 70; RESP 16; TEMP 37.2; O2SAT 97
[2019-05-31] MEDS: OXYCODONE IR 5 MG TABLET 10 MG PO ×3 (06:09→13:21)
[2019-05-31] MEDS: hydrOXYzine pamoate 25 MG CAPSULE PO ×2 (06:10→13:21)
[2019-05-31 08:00] VITALS: BP 131/78; PULSE 84; RESP 16; TEMP 36.4; O2SAT 98
[2019-05-31] MEDS: TRIMETH/SULFA 160/800 (DS) TABLET 1 TAB PO (09:17)
[2019-05-31] MEDS: GABAPENTIN 300 MG CAPSULE 900 MG PO (09:17)
[2019-05-31] MEDS: CARBIDOPA-LEVODOPA 25/100 TABLET 1 EACH PO (09:17)
[2019-05-31] MEDS: ACETAMINOPHEN 325 MG TABLET 650 MG PO (09:39)
[2019-05-31] MEDS: DOCUSATE 100 MG CAPSULE PO (09:40)
[2019-05-31] MEDS: SENNOSIDES 8.6 MG TABLET PO (09:40)
--- NOTE | 2019-05-31 09:58 | PC.NURSE ---
Addendum entered by Cinthia Varela R.N. 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 Original Note: AM NOTE - assist x 1 person up w/fww to br w/void, no dizziness, denies numbness l arm or fingers continues to report lue discomfort, some neck edema present, denies swallowing difficulty,declined chair, ret to bed, states pain neck/shoulder 8 on scale 0/10, soft collar off and declines to put on at this time, telfa dsg cdi, occassional hand tremor when mobilizing, not at rest, after breakfast given 10mg po oxycodone, discussed laxatives with ortho PA and given stool softener and senna, + bt and flatus, declined miralax.
--- NOTE | 2019-05-31 11:15 | PM.DS.1 ---
History of Present Illness History of Present Illness Date Patient Seen: 05/31/19 Time Patient Seen: 11:15 Chief complaint: [id number] Narrative: Patient has been having chronic neck pain and worsening cervical radiculopathy. Patient failed multiple conservative management with worsening pain weakness and numbness in her upper extremity. Patient has been having difficulty performing activity of daily living. After discussing risks benefits of treatment options, patient elected proceed with surgery. POD 2 s/p ACDF with Dr. Herndon. Patient complains of moderate pain in incision site. Patient mobilizing with PT. Voiding without difficulty or assistance. Pt denies fever, chills, nausea, vomiting, chest pain, shortness of breath. Discharge Providers Provider Date of admission: 05/29/19 08:38 Discharge Date: 05/31/19 Primary care physician: Rekha Resendiz MD Consults: 05/29/19 17:07 Consult to Occupational Therapy Evaluate & Treat Comment: Physician Instructions: Evaluate and treat Consult to Physical Therapy Evaluate & Treat Comment: Physician Instructions: Evaluate and Treat Discharge provider: Neto Ho PA-C Summary Hospital Course Discharge Diagnosis: s/p ACDF Parkinsonism Cervical spinal stenosis Numbness BLE Polyneuropathy Unilateral congenital abscense of left kidney Hair follicle infection Carpal tunnel syndrome of right wrist Hospital Course: Patient admitted to hospital s/p ACDF with Dr. Herndon. POD 2 patient was ready for discharge home. Hospital course was unremarkable. Pain was well controlled. Patient given prescription for oxycodone 10mg and vistaril. Will take Naproxen 500mg BID. Mobilizing with PT prior to disharge. Voiding without difficulty or assistance prior to discharge. Status at Discharge Cognitive/behavioral status at discharge: oriented Functional status at discharge: uses cane/walker Overall status at discharge: patient is progressing back to baseline Time Spent with Patient Time spent: Less than 30 minutes Exam Vital Signs (past 8 hours): - 05/31/19 04:20 05/31/19 08:00 Temperature 98.9 F 97.5 F L Pulse Rate 70 84 Respiratory Rate 16 16 Blood Pressure 104/67 131/78 Pulse Oximetry 97 98 Oxygen Delivery Method Room Air Oxygen Flow Rate 0 Narrative Exam Narrative: 68-year-old male resting comfortably in bed in no apparent distress. Anterior cervical dressing is clean, dry and intact. Good strength bilateral upper extremity. Sensation grossly intact to light touch bilateral upper extremities. Discharge Plan Discharge Plan Patient Disposition: Home Discharge orders & Medications Prescriptions: New oxycodone 10 mg tablet 10 mg PO Q4-6H PRN (Reason: pain (scale score 7-10)) Qty: 60 RF: 0 acetaminophen [Tylenol Extra Strength] 500 mg tablet 500 mg PO Q4H PRN (Reason: pain (scale score 1-3)) Qty: 60 RF: 0 hydroxyzine pamoate [Vistaril] 25 mg capsule 25 mg PO BEDTIME Qty: 30 RF: 0 Continued gabapentin 300 mg Capsule 900 mg PO TID RF: 0 carbidopa-levodopa 25-100 mg Tablet 1 tab PO TID RF: 0 sulfamethoxazole-trimethoprim 800-160 mg Tablet 1 tab PO BID RF: 0 Follow up/Referrals: Olayinka Herndon MD [Physician] - Rekha Resendiz MD [Primary Care Provider] - Diet/Activity/Treatments Diet: Regular Activity: no excessive bending, lifting, twisting. Cold/Heat Therapy: continue cold/heat therapy Skin/Wound/Dressing Care Report to your healthcare provider any signs of infection, such as:: chills, fever, increased pain, unusual drainage and unusual redness Dressing: keep dressing dry. if saturated contact office Visit Report/Discharge Packet Instructions: DI for Anterior Cervical Discectomy and Fusion, Oxycodone Stand Alone Forms: Surgery Discharge Discharge Data Primary Care Provider: Rekha Resendiz Discharges patient from system. Discharge Date/Time: 05/31/19 14:15
--- NOTE | 2019-05-31 12:21 | OT.IP.TRT ---
Current Diagnoses Spondylolisthesis, cervical region (05/29/19) Spinal stenosis, cervical region (05/29/19) Surgery Performed Operation Date: 05/29/19 11:15 Actual Procedures p C4-5,C5-6,C6-7 ACDF w/ anterior instrumentation - Olayinka Herndon MD Occupational Therapy Treatment Note M3 OT- IP Subjective and Pain Start: 05/30/19 17:18 Freq: Status: Active Protocol: Document 05/31/19 12:21 PJM (Rec: 05/31/19 17:40 PJ [id number]) OT- Subjective Occupational Therapy Visit Type Type Treatment Note Visit Start Time 11:20 Visit Stop Time 12:21 Total Visit Minutes 61 Notes Pt's here for education this session. Occupational Therapy Visit Comments Patient Comments My neck feels better now after I had a nap in bed. Patient/Caregiver Goals to go home today OT Pain Assessment Pain When Pain Assessed After Treatment Pain Present Pain Present Pain Reported Location Neck Intensity 3 Description Aching,Acute Pain Behaviors Facial Grimacing,Guarding Management Techniques Distraction,Re-positioning, Timing of Activity with Medications M4 OT- IP ADL's Start: 05/30/19 17:18 Freq: Status: Active Protocol: Document 05/31/19 12:21 PJM (Rec: 05/31/19 17:40 PJ [id number]) OT [id number] General Evaluation Self-Feeding Ability Independent OT ADL-Grooming General Evaluation Grooming Ability Standby Assistance Areas Needing Assistance Combing/Brushing Hair Comments OT Grooming Comments seated in chair after shower OT ADL-Oral Care Comments Oral Care Comments pt declined this session; provided education re: body mechanics at sink OT ADL-Dressing General Eval Upper Body Dressing Ability Minimal Assistance Lower Body Dressing Ability Minimal Assistance Areas Needing Assistance Button-Up Shirt/Blouse, Underpants/Brief,Pants/Shorts, Socks Comments OT Dressing Comments pt has lab coordinator ordered, to assist with socks, shoes until pt able OT ADL-Toileting General Evaluation Toileting Ability Standby Assistance Areas Needing Assistance Manage Clothing,Perform Perineal Hygiene Devices Toileting Assistive Devices Grab Bars,Raised Toilet Seat Comments OT Toileting Comments has ordered RTS for pt, pt has counter next to toilet OT ADL-Bathing Bathing Type Bathing Type Shower General Evaluation Bathing Ability Minimal Assistance Areas Needing Assistance Wash/Dry Back,Wash/Dry Lower Extremities Devices Bathing Equipment Long Handled Sponge or [place], Hand Held Shower Sprayer, Shower Chair without Arms,Grab Bars Comments OT Bathing Comments has orders shower seat, pt has long sponge, grab bars, hand held shower hose; observing shower and provided education to pt/ re: precautions and adapted techniques; M7 OT- IP Mobility and Balance Start: 05/30/19 17:18 Freq: Status: Active Protocol: Document 05/31/19 12:21 PJM (Rec: 05/31/19 17:40 PJ [id number]) OT- Bed Mobility Assessment Rolling Type of Rolling Log Rolling,Roll to Right Level of Assistance Independent Supine to Sit Supine to Sit Assist Independent Scooting Scooting to Edge of Bed Standby Assistance OT-Transfer Assessment Sit to and From Stand Sit to and from Stand Contact Guard Assistance,1 Person Assistance Transfers Transfer Ability Contact Guard Assistance Technique Transfer Destination Chair,Shower Stall,Toilet Transfer Technique Stand Step Pivot Devices Transfer Assistive Devices Gait Belt,Front Wheeled Walker Comments Mobility Comments provided education to pt/ re: bathroom transfers and gait belt use; provided education re: car transfer technique OT- Gait Assessment Gait Gait Assistance Required: Contact Guard Assist Distance (Feet) 25 Assistive Devices Assistive Device Gait Belt,Front Wheeled Walker Comments Gait Ability Comments pt tends to lean to R in standing and keeps neck extended due to anterior neck edema; able to correct posture with mod verbal cues, no loss of balance noted with FWW use this session OT- Balance Assessment Sitting Balance and Reactions Static Sitting Balance Ability Good Dynamic Sitting Balance Ability Fair Standing Balance and Reactions Static Standing Balance Ability Good Dynamic Standing Balance Ability Fair Comments Other Balance Tests/Deviations/Treatment during dressing, bathing : M9 OT- IP Assessment and Plan Start: 05/30/19 17:18 Freq: Status: Active Protocol: Document 05/31/19 12:21 PJM (Rec: 05/31/19 17:40 PJ [id number]) OT Summary Assessment and Plan Potential Rehabilitation Potential Good Summary Progress Towards Goals Safe For Discharge,Goals Met Assessment Summary Pt/ seen for final self care training session as described above and all OT goals achieved for this admission. Good effort and participation from pt throughout session. He performs self care tasks slowly and carefully. Pt plans to d/c home today with 24 hr assist from supportive . No further OT services needed at this time. Frequency of Treatment Frequency Of Treatment Discharge Discharge Recommendations OT Discharge Recommendations Home with 07/02 Assist Home Equipment Needs lab coordinator, shower chair raised toilet seat
--- NOTE | 2019-05-31 13:45 | PT.IPTN ---
Current Diagnoses Spondylolisthesis, cervical region (05/29/19) Spinal stenosis, cervical region (05/29/19) Surgery Performed Operation Date: 05/29/19 11:15 Actual Procedures p C4-5,C5-6,C6-7 ACDF w/ anterior instrumentation - Olayinka Herndon MD Physical Therapy Treatment Note M2 PT-IP Current Condition Start: 05/30/19 08:25 Freq: NEEDED Status: Active Protocol: Document 05/30/19 09:18 JG (Rec: 05/30/19 11:57 JG [id number]) Physical Therapy Current Condition Current Condition Evaluation Date 05/30/19 Treatment Diagnosis ACDF C4-C7, limited activity tolerance,difficulty walking, impaired mobility Onset Date 05/29/19 Precautions Cervical Spine Precautions Soft Collar for Comfort,No Heavy Lifting,Log Roll Weight Bearing Status Weight Bearing Status Full Weight Bearing M3 PT-IP Subjective Start: 05/30/19 08:25 Freq: NEEDED Status: Active Protocol: Document 05/31/19 13:20 EDITH (Rec: 05/31/19 14:14 EDITH [id number]) Subjective Physical Therapy Visit Type Type Treatment Note Visit Start Time 13:20 Visit Stop Time 13:45 Total Visit Minutes 25 Notes Treatment supervised by RIO Rebolledo. Number of PRODUCT DEVELOPMENT ENGINEER Visits 2 Physical Therapy Visit Comments Patient Comments Pt reports that he is willing to participate in stair training in preparation to go home. M4 PT-IP Mobility and Gait Start: 05/30/19 08:25 Freq: NEEDED Status: Active Protocol: Document 05/31/19 13:20 EDITH (Rec: 05/31/19 14:14 EDITH [id number]) PT-Transfer Assessment Sit to and From Stand Sit to and from Stand Contact Guard Assistance,Use of Upper Extremities Equipment Transfer Assistive Device Gait Belt,Front Wheeled Walker Orthotic/Prosthetic Devices or Brace: Yes Transfers Transfer Destination Chair Transfer Ability Level of Assist Contact Guard Assistance,1 Person Assistance,Use of Upper Extremities Comments Mobility Comments Pt sitting in chair with cervical collar on. STS with CGA and use of UE. Required cues for proper use of FWW for stand<>sit. Pt left in chair with all needs in reach. Gait Assessment Gait Gait Assistance Required: Contact Guard Assist,1 Person Assist Distance (Feet) 500 Able to Maintain Weight Bearing Status Yes During Gait Assistive Devices Assistive Device Gait Belt,Front Wheeled Walker Orthotic/Prosthetic Devices or Brace: No Gait Deviations General Gait Pattern Decreased Stride Length, Decreased Feet Clearance, Flexed Trunk,Lateral Trunk Lean Factors Limiting Gait Function Factors Limiting Gait Function Decreased Activity Tolerance, Decreased Strength,Limited Range of Motion,Poor Balance, Poor Safety Awareness Comments Gait Comments Pt had lateral lean to R side while ambulating. Decreased foot clearance, stride length, and flexed trunk observed during ambulation due to poor balance and decreased strength . Pt verbalized mild dizziness during gait training and required frequent cues to stay inside of FWW. Educated and gave pt cueing for proper body alignment for the pt to remain in midline. Stair Climbing Assessment Evaluation Level of Assist On Stairs Contact Guard Assistance Devices Stair Climbing Assistive Devices Straight Cane Technique/Endurance Stair Climbing Direction Ascend and Descend Stair Climbing Technique Step to Step Number of Steps Climbed 3 Stair Climbing Set # Repetitions (reps) 3 Comments Stair Climbing Comments Pt had loss of balance while ascending/descending stairs first time w/o use of SPC or handrail requiring min A and use of handrail to recover balance. Assessed a second time with wall on L side and SPC in R hand and pt was able to perform steadily with step to gait. Successfully completed caregiver training with on ascend/descend stairs with SPC and wall. Pt and caregiver demonstrated proper technique and guarding on stairs. Dispensed pt with FWW for at home use. PT-Balance Assessment Sitting Balance and Reactions Static Sitting Balance Ability Good Dynamic Sitting Balance Ability Fair Standing Balance and Reactions Static Standing Balance Ability Good Dynamic Standing Balance Ability Fair Device Used FWW M5 PT-IP Objective Assessments Start: 05/30/19 08:25 Freq: NEEDED Status: Active Protocol: Document 05/30/19 09:18 JG (Rec: 05/30/19 11:57 J [id number]) Orientation Orientation/Cognition Level of Alertness Alert Orientation Name,Age,Birthday,Month,Date, Year,Day of Week,Place, Situation Language Function Ability No Deficits Noted Safety Awareness Understands Safety Issues Memory Description No Deficits Noted Comments No noted cognitive or communication deficits. Pt does report feeling groggy from medications. Gross Range of Motion Upper Extremity ROM Assessment Within Functional Limits Lower Extremity ROM Assessment Within Functional Limits Strength Upper Extremity Strength Assessment Bilaterally Impaired Shoulder 4/5 Elbow 4/5 Wrist 4/5 Hand 5/5 Lower Extremity Strength Assessment Within Functional Limits Coordination Assessment Gross Coordination Gross Coordination Impaired Assessment Finger to Nose Test Minimal Impairment Pronation/Supination Test Minimal Impairment Foot Tapping Test Normal Performance Sensation Assessment Sensation Gross Sensation WNL Muscle Tone Muscle Tone WNL Yes M6 PT-IP Treatment Start: 05/30/19 08:25 Freq: NEEDED Status: Active Protocol: Document 05/31/19 13:20 EDITH (Rec: 05/31/19 14:14 [id number]) Physical Therapy Treatment Education Education Provided Precautions,Post-Op Packet, Safety Other Treatments Other Treatment Performed Educated patient and caregiver on how to properly use gait belt, FWW, and ascend/descend stairs. M7 PT-IP Assessment and Plan Start: 05/30/19 08:25 Freq: NEEDED Status: Active Protocol: Document 05/31/19 13:20 EDITH (Rec: 05/31/19 14:14 EDITH [id number]) PT Summary Assessment and Plan Potential Rehabilitation Potential Good Status of Condition at Evaluation Stable Summary Impairments Pain,ROM,Strength,Balance, Coordination,Bed Mobility, Transfers,Gait,Activity Tolerance Assessment Summary Pt still experiencing dizziness due to pain medication, but remains stable while sitting and standing with FWW. Able to ambulate further distance than necessary in home. Loss of balance during stair trainging w/o handrails or wall, but able to remain balanced with SPC and wall on L side. Pt and caregiver feel safe ascending /descending stairs. FWW dispensed for pt use at home. Recommend installation of handrail for stairs to decrease pts fall risk. Safe to d/c when medically stable. Goals Bed Mobility Goal Independent Transfer Goal Independent,Front Wheeled Walker Gait Goal Independent,Front Wheel Walker Gait Distance 250 Other Goals Ascend/descend 5 steps with single railing support CGA Days to Meet Goals 5 Treatment Plan Physical Therapy Treatment Plan Bed Mobility Training,Transfer Training,Gait Training, Therapeutic Exercise,Balance Retraining,Post Op Education, Discharge Planning,Hot or Cold Pack,Neuromuscular Re-ed Other Recommendations and Next Treatment Caregiver training Focus Stairs Recommendations To Nursing Amount of Assist Needed 1 Person Assist Discharge Recommendations PT Discharge Recommendations Home with 24/7 Assist,Home Health,Outpatient PT Equipment Needed for Home Before FWW Discharge
== END 2019-05-31 14:15 | disposition home or self-care (01) | DRG 472 ==
PROVIDERS: Admitting Provider Orthopaedic Surgery Orthopaedic Surgery of the Spine; PCP Internal Medicine; Visit Provider Orthopaedic Surgery Orthopaedic Surgery of the Spine
PROC: 0RG20A0 Fusion of 2 or more Cervical Vertebral Joints with Interbody Fusion Device, Anterior Approach, Anterior Column, Open Approach (ICD-10-PCS; principal; 2019-05-29 11:15)
DX: M48.02 Spinal stenosis, cervical region (principal); Q60.0 Renal agenesis, unilateral; M47.22 Other spondylosis with radiculopathy, cervical region; M43.12 Spondylolisthesis, cervical region; G57.93 Unspecified mononeuropathy of bilateral lower limbs; G20 Parkinson's disease; Z87.891 Personal history of nicotine dependence
CPT/HCPCS: 72040; 76000; 97116; 97162; 97165; 97530; 97535; C1776; J1100; J1170; J2405; J2704; J3010

== ENCOUNTER → 2019-09-06 13:57 | Outpatient (CLI) | payer MEDICARE, OTHER, SELFPAY ==
[2019-05-29 18:00] VITALS: BMI 22.9
--- NOTE | 2019-09-06 | DI.CT.S_ITS ---
PROCEDURE: CT CERVICAL SPINE WO CON INDICATIONS: Spinal stenosis, cervical region TECHNIQUE: Noncontrast 3 mm thick sections acquired from the skull base to the T4 level. Sagittal and coronal reformats were then constructed. For radiation dose reduction, the following was used: automated exposure control, adjustment of mA and/or kV according to patient size. COMPARISON: [facility], MR, MR CERVICAL SPINE WO CON, 02/28/2019, 11:13. [facility], CR, XR CERVICAL SPINE 2 OR 3 VIEWS, 09/06/2019, 13:21. [facility], CR, XR CERVICAL SPINE 2 OR 3 VIEWS, 07/04/2019, 13:17. [facility], CR, XR CERVICAL SPINE 2V OR 3V, 05/29/2019, 13:00. FINDINGS: Image quality: Excellent. Bones: No fractures or dislocations. There is discectomy and anterior fusion at C4-C7. Surgical plate and screws appear intact. There is grade 1 retrolisthesis of C4 on C5. Mild degenerative disc disease is present at C2-C3 and C3-C4. There is large posterior disc osteophyte complex at C4-C5 causing moderate central canal stenosis. Mild central canal stenosis at C3-C4 secondary to a posterior disc bulge. Visualized superior ribs are intact. Soft tissues: Prevertebral soft tissues are normal in thickness. No paravertebral hematomas. No apical pneumothoraces. IMPRESSION: 1. Degenerative and postsurgical changes in cervical spine as described. 2. Moderate central canal stenoses at C4-C5. 3. No CT findings to suggest surgical hardware failure. 4. Grade 1 retrolisthesis of C4 on C5. Dictated by: Chelsea Gant M.D. on 09/06/2019 at 16:31 Approved by: Chelsea Gant M.D. on 09/06/2019 at 16:37
== END ==
PROVIDERS: Referring Provider Orthopaedic Surgery Orthopaedic Surgery of the Spine; Visit Provider Orthopaedic Surgery Orthopaedic Surgery of the Spine
DX: M50.31 Other cervical disc degeneration, high cervical region (principal); M48.02 Spinal stenosis, cervical region; Z98.1 Arthrodesis status
CPT/HCPCS: 72125

== ENCOUNTER 2022-07-13 10:23 | Day surgery (SDC) | payer MEDICARE, OTHER, SELFPAY ==
[2019-05-29 18:00] VITALS: BMI 22.9
[2022-07-08 11:55] VITALS: BMI 22.9
[2022-07-13 11:21] VITALS: BMI 21.6
[2022-07-13] MEDS: LACTATED RINGERS 1,000 ML 42 ML IV (11:29)
--- NOTE | 2022-07-13 11:34 | PM.HP.1 ---
History of Present Illness History of Present Illness Date Patient Seen: 07/13/22 Time Patient Seen: 11:35 Chief complaint: Colonoscopy Narrative: Last colonoscopy was 10 years ago. Here for positive Cologuard test. no symptoms or family history of concern. Patient History Medical History Carpal tunnel syndrome of right wrist Cervical spinal stenosis Hair follicle infection (05/23/19) Numbness Parkinsonism Polyneuropathy Unilateral congenital absence of kidney Surgical History H/O vasectomy Hx of appendectomy Hx of cholecystectomy Hx of hernia repair Hx of tonsillectomy Family & Social History Social History: household members spouse Tobacco & Substance use: Smoking Status Former smoker alcohol intake former Substance Use Type does not use Meds Home Medications and Allergies Home Medications Medication Instructions Recorded Confirmed Type carbidopa 25 mg-levodopa 100 mg 1 tab PO TID 05/23/19 07/13/22 History tablet gabapentin 300 mg capsule 900 mg PO TID 05/23/19 07/13/22 History acetaminophen 500 mg tablet 500 mg PO Q4H PRN pain (scale 05/31/19 07/13/22 Rx (Tylenol Extra Strength) score 1-3) #60 tabs metronidazole 0.75 % topical gel 1 applic topical DAILY 07/13/22 07/13/22 History Allergies Allergy/AdvReac Type Severity Reaction Status Date / Time Penicillins Allergy Hives, age Verified 05/29/19 09:59 15 Review of Systems Review of Systems ROS: Yes All systems reviewed with the patient and are negative except as otherwise documented Exam Const General: cooperative and frail appearing Nutritional Appearance: thin HENMT Head: normocephalic and atraumatic Eyes General: appearance normal, both eyes and all related structures Neck Neck: trachea midline Resp Effort & Inspection: normal respiratory effort and able to speak in complete sentences Cardio Rate: regular rate Rhythm: regular rhythm GI Palpation: soft Skin General: atrophy and crusts Neuro General: patient alert, patient awake and patient oriented x3 Psych Appearance: grossly normal Judgment: judgment good Assessment & Plan Assessment & Plan narrative: colonoscopy under MAC due to a positive Cologuard test. COVID-19 COVID-19 status: Negative Time Spent With Patient Time with patient: less than 30 minutes Critical Care time: I spent a total of [] minutes of critical care time on this patient's care today; this time is exclusive of procedural time.
--- NOTE | 2022-07-13 11:46 | PM.OP.COLON ---
Operative Date/Time/Diagnoses Date of procedure: 07/13/22 Time of procedure: 11:46 Pre-op diagnosis: positive Cologuard test Post-op diagnosis: same Procedure & Clinicians Study performed: colonoscopy Indications: positive Cologuard test Surgeon: Gabrielle Interiano Procedure Notes Procedure in detail: Preop diagnosis: Positive Cologuard Postop diagnosis: Same Operative procedure: Colonoscopy under MAC Surgeon: Sarah Interiano MD Findings: Moderate to severe diverticulosis with stiffening of the descending colon. No polyps identified. Internal hemorrhoids grade 2-3 Procedure: Patient placed in lateral position. Rectal exam performed showing normal tone no masses. Colonoscope inserted into the rectum and advanced to ileocecal valve with minimal difficulty. Insufflation extraction of the scope including a retroflex in the rectum had the above findings. Impression: Moderate to severe diverticulosis with stiffening of the sigmoid colon. No polyps identified. Grade 2-3 internal hemorrhoids Plan: Repeat colonoscopy in 10 years unless otherwise indicated by change in clinical condition. I expect the Cologuard was positive due to the internal hemorrhoids Findings: divertiulosis and internal hemorrhoids Specimen(s): none sent Complications: none Post-procedure Recommendations: Colonoscopy in 10 years Follow up: as needed Disposition: PACU
[2022-07-13 12:11] VITALS: BP 120/64; PULSE 80; RESP 18; TEMP 36.1; O2SAT 99
[2022-07-13 12:15] VITALS: BP 123/52; PULSE 79; RESP 13; TEMP 36.2; O2SAT 97
[2022-07-13 12:20] VITALS: BP 131/72; PULSE 77; RESP 11; TEMP 36.4; O2SAT 99
[2022-07-13 12:32] VITALS: BP 130/79; PULSE 74; RESP 14; TEMP 36.4; O2SAT 99
== END 2022-07-13 12:41 | disposition home or self-care (01) ==
PROVIDERS: Referring Provider Surgery; Visit Provider Surgery
PROC: 0DJD8ZZ Inspection of Lower Intestinal Tract, Via Natural or Artificial Opening Endoscopic (ICD-10-PCS; CPT 45378; principal; 2022-07-13 12:15)
DX: R19.5 Other fecal abnormalities (principal); Z20.822 Contact with and (suspected) exposure to COVID-19; K57.30 Diverticulosis of large intestine without perforation or abscess without bleeding; K64.2 Third degree hemorrhoids; Z01.812 Encounter for preprocedural laboratory examination
CPT/HCPCS: G0121; 87635; C9803; J2704

== ENCOUNTER → 2022-07-13 10:26 | Outpatient (CLI) | payer MEDICARE, OTHER, SELFPAY ==
[2022-07-08 11:55] VITALS: BMI 22.9
[2022-07-13 11:01] LABS: COVID19 -Nasal RAPID Negative (Negative)
== END ==
PROVIDERS: Visit Provider Surgery
DX: Z01.812 Encounter for preprocedural laboratory examination (principal); Z20.822 Contact with and (suspected) exposure to COVID-19
CPT/HCPCS: 87635